=== PATIENT | male | born 2000 | race African-American/Black ===

== ENCOUNTER 2021-08-01 01:18 | Emergency (ER) | payer SELFPAY ==
[2021-08-01] MEDS ORDERED: Boostrix 0.5 ML (Tdap) VIAL ONE (01:40)
== END 2021-08-01 02:06 | disposition home or self-care (01) ==
LOC: CSHERS 01:18
DX: S62.337A Displaced fracture of neck of fifth metacarpal bone, left hand, initial encounter for closed fracture (principal); Z23 Encounter for immunization; W34.09XA Accidental discharge from other specified firearms, initial encounter
CPT/HCPCS: 26600; 90471; 90715

== ENCOUNTER 2021-10-05 08:20 | Emergency (ER) | payer SELFPAY | END 2021-10-05 09:50 | disposition home or self-care (01) | LOC: CSHERS 08:20 | DX: J02.9 Acute pharyngitis, unspecified (principal) | CPT/HCPCS: 99283 ==

== ENCOUNTER 2024-01-02 03:07 | Emergency (ER) | payer SELFPAY ==
[2024-01-02] MEDS ORDERED: Ketorolac Tromethamine 30 MG (1 mL) VIAL ONE (03:15)
== END 2024-01-02 04:08 | disposition home or self-care (01) ==
LOC: CSHERS 03:07
DX: B34.9 Viral infection, unspecified (principal)
CPT/HCPCS: 96374; J1885

== ENCOUNTER 2024-01-03 12:04 | Emergency (ER) | payer SELFPAY ==
[2024-01-03] MEDS ORDERED: Ketorolac Tromethamine 30 MG (1 mL) VIAL ONE (12:58)
[2024-01-03] MEDS ORDERED: Dexamethasone 10 MG/ML VIAL ONE (12:58)
[2024-01-03] MEDS ORDERED: Lidocaine 2% Viscous 10 mL, Alum & Magn 30 mL SSW SCH (13:15)
[2024-01-03 14:13] LABS: SARS-CoV-2 E Target Negative; SARS-CoV-2 N2 Target Negative; SARS-CoV-2 NAA Rapid Test Not Detected (NotDetected); SARS-CoV-2 RdRP gene Negative
== END 2024-01-03 14:52 | disposition home or self-care (01) ==
LOC: CSHERS 12:04
DX: J02.9 Acute pharyngitis, unspecified (principal)
CPT/HCPCS: 87081; 87430; 96372; 99283; J1100; J1885; U0002